=== PATIENT | female | born 2000 | race Caucasian/White ===

== ENCOUNTER 2020-09-28 12:23 | Emergency (ER) | payer OTHER ==
[~2020-09-28 12:23] MED LIST: BENADRYL25 MG PO; IBUPROFEN600 MG PO; PREDNISONE50 MG PO; TORADOL 10 MG T10 MG PO; ZOFRAN4 MG PO
[2020-09-28 12:52] LABS: HEMOGLOBIN 13.9 gm/dl (12.3-15.3); RED BLOOD COUNT 4.74 M/UL (4.00-5.10)
[2020-09-28 13:12] LABS: BUN/CREATININE RATIO 20 (0-10)
[2020-09-28] MEDS ORDERED: ZOFRAN 4 MG TAB4 MG PO (16:12)
== END 2020-09-28 16:25 | disposition home or self-care (01) ==
LOC: ER1 12:23
DX: R11.2 Nausea with vomiting, unspecified (principal); R19.7 Diarrhea, unspecified; R63.0 Anorexia; Z90.49 Acquired absence of other specified parts of digestive tract
CPT/HCPCS: 80053; 81001; 83690; 84703; 85025; 96374; 99284; J2405

== ENCOUNTER 2021-08-20 21:10 | Inpatient (IN) | payer OTHER ==
[~2021-08-20] VITALS: Ht 167.6 cm; Wt 72.6 kg
[~2021-08-20 21:10] MED LIST changes: +ZOFRAN 4 MG TAB4 MG PO
[2021-08-21 07:42] LABS: HEMOGLOBIN 11.8 gm/dl (12.3-15.3); RED BLOOD COUNT 3.94 M/UL (4.00-5.10); WHITE BLOOD COUNT 14.8 K/UL (4.5-11.0)
[2021-08-21 08:16] LABS: BUN/CREATININE RATIO 18 (0-10)
--- NOTE | 2021-08-22 02:57 | NUR ---
BEDSIDE TABLE AND WALKER MOVED INTO BATHROOM, BLINDS DOWN AND CURTAIN PULLED PER CORPORATE JOB TITLES DUE TO TORNADO WATCH
[2021-08-22 05:06] LABS: HEMOGLOBIN 10.7 gm/dl (12.3-15.3); RED BLOOD COUNT 3.57 M/UL (4.00-5.10); WHITE BLOOD COUNT 12.9 K/UL (4.5-11.0)
[2021-08-22 05:28] LABS: BUN/CREATININE RATIO 11 (0-10)
[2021-08-22] MEDS ORDERED: LOVENOX40 MG/0.4 SQ (15:47)
== END 2021-08-22 16:20 | disposition home or self-care (01) | DRG 493 ==
LOC: ER1 21:10 → M/S 08-21 03:45 → CDU 08-21 03:45 → M/S 08-21 14:53
PROVIDERS: Orthopaedic Surgery; ADMIT Internal Medicine
PROC: 0QSG06Z Reposition Right Tibia with Intramedullary Internal Fixation Device, Open Approach (ICD-10-PCS; principal; 2021-08-21 13:00)
DX: S82.431A Displaced oblique fracture of shaft of right fibula, initial encounter for closed fracture (principal); S82.001A Unspecified fracture of right patella, initial encounter for closed fracture; Z20.822 Contact with and (suspected) exposure to COVID-19; S82.191A Other fracture of upper end of right tibia, initial encounter for closed fracture; E66.9 Obesity, unspecified; S82.241A Displaced spiral fracture of shaft of right tibia, initial encounter for closed fracture; V89.2XXA Person injured in unspecified motor-vehicle accident, traffic, initial encounter; Z91.010 Allergy to peanuts; Z90.49 Acquired absence of other specified parts of digestive tract; Z68.25 Body mass index [BMI] 25.0-25.9, adult
CPT/HCPCS: 29505; 36415; 70450; 71045; 72125; 73552; 73590; 76000; 80048; 80053; 83735; 84703; 85025; 85027; 85610; 86850; 86900; 86901; 97116-GP-CQ; 97161; 97165; 99285; J0690; J1100; J1170; J1650; J1885; J2001; J2250; J2270; J2370; J2405; J2704; J2795; J3010; J7120; U0002